=== PATIENT | male | born 1955 | race Caucasian/White ===

== ENCOUNTER 2019-01-05 14:27 | Observation (INO) ==
[2019-01-05 17:34] LABS: Basophils # 0.1 10*3/uL (0.0-0.2); Basophils % 0.4 % (0.0-0.8); Eosinophils # 0.5 10*3/uL (0.0-0.87); Eosinophils % 3.5 % (0.00-10.9); Hematocrit 42.5 VOL% (42.0-52.0); Hemoglobin 13.3 GM/DL (14.0-18.0); Immature Granulocytes % 0.7 %; Lymphocytes # 3.2 10*3/uL (1.4-4.0); Lymphocytes % 22.6 % (21.2-54.2); Mean Corpuscular HGB Conc 31.3 GM/DL (32-36); Mean Platelet Volume 9.7 FL (9.6-12.0); Monocytes % 7.3 % (1.7-12.7); Neutrophils % 65.5 % (38.7-73.9); Platelet Count 347 T/CUMM (130-400); Red Blood Count 4.83 MC/CUMM (3.8-5.5); Red Cell Distribution Width 15.7 % (9.3-17.3); White Blood Count 14.1 T/CUMM (4-12)
[2019-01-05] MEDS ORDERED: GLUCAGON 1 MG VIAL IM PRN (17:37)
[2019-01-05] MEDS ORDERED: DEXTROSE 10% 250 ML BAG IV PRN (17:37)
[2019-01-05] MEDS ORDERED: LACTULOSE 20 GM/30 ML UDCUP PO PRN (17:38)
[2019-01-05] MEDS ORDERED: DOCUSATE SODIUM 100 MG CAPSULE PO PRN (17:38)
[2019-01-05] MEDS ORDERED: ACETAMINOPHEN 325 MG TABLET PO PRN (17:38)
[2019-01-05] MEDS ORDERED: ZALEPLON 5 MG CAPSULE PO PRN (17:38)
[2019-01-05] MEDS ORDERED: ONDANSETRON 4 MG/2 ML VIAL IV PRN (17:38)
[2019-01-05] MEDS ORDERED: MORPHINE 4 MG/1 ML VIAL IV PRN (17:38)
[2019-01-05] MEDS ORDERED: NITROGLYCERIN SL 0.4 MG TABLET SL PRN (17:40)
[2019-01-05] MEDS ORDERED: hydrALAZINE 20 MG/1 ML VIAL IV PRN (17:54)
[2019-01-05 18:00] LABS: Albumin 4.4 G/DL (3.4-5.0); Bilirubin,Total 0.7 MG/DL (0.2-1.0); Osmolality,Calculated 284.7 MOS/KG (273-304); Total Protein 8.4 G/DL (6.4-8.3)
[2019-01-05 18:15] LABS: Troponin I 0.401 NG/ML (0.00-0.045)
[2019-01-05] MEDS: CARVEDILOL 25 MG TABLET PO SCH (21:04)
[2019-01-05] MEDS: ENOXAPARIN 40 MG/0.4 ML SYRINGE SUBCUT SCH (21:04)
[2019-01-05] MEDS: TICAGRELOR 90 MG TABLET PO SCH (21:04)
[2019-01-05] MEDS: RANOLAZINE 500 MG TABLET PO SCH (21:04)
[2019-01-05] MEDS: INSULIN REGULAR 100 UNIT/ML SUBCUT SCH (21:41)
[2019-01-05 23:48] LABS: Troponin I 0.412 NG/ML (0.00-0.045)
[2019-01-06 04:47] LABS: Basophils # 0.1 10*3/uL (0.0-0.2); Basophils % 0.5 % (0.0-0.8); Eosinophils # 0.5 10*3/uL (0.0-0.87); Eosinophils % 5.7 % (0.00-10.9); Hematocrit 39.3 VOL% (42.0-52.0); Hemoglobin 12.3 GM/DL (14.0-18.0); Immature Granulocytes % 0.7 %; Immature Granulocytes Absolute 0.06 #; Lymphocytes # 2.8 10*3/uL (1.4-4.0); Lymphocytes % 30.2 % (21.2-54.2); Mean Corpuscular HGB Conc 31.3 GM/DL (32-36); Mean Corpuscular Volume 87.5 FL (87-102); Mean Platelet Volume 10.2 FL (9.6-12.0); Monocytes % 8.5 % (1.7-12.7); Neutrophils % 54.4 % (38.7-73.9); Platelet Count 282 T/CUMM (130-400); Red Blood Count 4.49 MC/CUMM (3.8-5.5); Red Cell Distribution Width 15.7 % (9.3-17.3); White Blood Count 9.1 T/CUMM (4-12)
[2019-01-06 05:25] LABS: Risk Ratio 3.42; VLDL CHOLESTEROL 69.2 MG/DL
[2019-01-06 05:30] LABS: Calcium 9.5 MG/DL (8.5-10.1); Osmolality,Calculated 289.3 MOS/KG (273-304); Thyroid Stimulating Hormone 2.3 uIU/ml (0.358-3.74)
[2019-01-06 05:32] LABS: Troponin I 0.294 NG/ML (0.00-0.045)
[2019-01-06] MEDS: ASPIRIN CHEW 81 MG TABLET PO SCH (10:16)
[2019-01-06] MEDS: ROSUVASTATIN 20 MG TABLET PO SCH (10:16)
[2019-01-06] MEDS: RANOLAZINE 500 MG TABLET PO SCH ×2 (10:16→20:42)
[2019-01-06] MEDS: CARVEDILOL 25 MG TABLET PO SCH ×2 (10:16→18:24)
[2019-01-06] MEDS: PIOGLITAZONE 15 MG TABLET PO SCH (10:16)
[2019-01-06] MEDS: TICAGRELOR 90 MG TABLET PO SCH (10:16)
[2019-01-06] MEDS: INSULIN REGULAR 100 UNIT/ML SUBCUT SCH ×4 (11:29→21:24)
[2019-01-06] MEDS ORDERED: PRASUGREL 10 MG TABLET PO ONE (13:08)
[2019-01-06] MEDS: OMEGA 3 ACID ETHYL ESTERS 1 GM CAPSULE PO SCH (20:42)
[2019-01-06] MEDS: EZETIMIBE 10 MG TABLET PO SCH (20:42)
[2019-01-06] MEDS: ENOXAPARIN 40 MG/0.4 ML SYRINGE SUBCUT SCH (20:43)
[2019-01-07] MEDS ORDERED: PRASUGREL 10 MG TABLET PO SCH (09:00)
[2019-01-07] MEDS ORDERED: amLODIPine 2.5 MG TABLET PO PRN (09:28)
[2019-01-07] MEDS: PIOGLITAZONE 15 MG TABLET PO SCH (10:01)
[2019-01-07] MEDS: OMEGA 3 ACID ETHYL ESTERS 1 GM CAPSULE PO SCH ×2 (10:07→21:29)
[2019-01-07] MEDS: SERTRALINE 25 MG TABLET PO SCH (10:08)
[2019-01-07] MEDS: ROSUVASTATIN 20 MG TABLET PO SCH (10:08)
[2019-01-07] MEDS: ASPIRIN CHEW 81 MG TABLET PO SCH (10:08)
[2019-01-07] MEDS: CARVEDILOL 12.5 MG TABLET PO SCH ×3 (10:08→19:32)
[2019-01-07] MEDS: CLOPIDOGREL 75 MG TABLET PO SCH (10:08)
[2019-01-07] MEDS: INSULIN REGULAR 100 UNIT/ML SUBCUT SCH ×4 (10:22→21:30)
[2019-01-07] MEDS: CARVEDILOL 25 MG TABLET PO SCH (19:32)
[2019-01-07] MEDS: RANOLAZINE 500 MG TABLET PO SCH (19:33)
[2019-01-07] MEDS ORDERED: SERTRALINE 25 MG TABLET PO SCH (21:00)
[2019-01-07] MEDS ORDERED: traZODone 50 MG TABLET PO SCH (21:00)
[2019-01-07] MEDS: EZETIMIBE 10 MG TABLET PO SCH (21:29)
[2019-01-07] MEDS: ENOXAPARIN 40 MG/0.4 ML SYRINGE SUBCUT SCH (21:29)
[2019-01-08 04:24] LABS: Basophils # 0.1 10*3/uL (0.0-0.2); Basophils % 0.7 % (0.0-0.8); Eosinophils # 0.6 10*3/uL (0.0-0.87); Eosinophils % 6.9 % (0.00-10.9); Hematocrit 37.2 VOL% (42.0-52.0); Hemoglobin 11.5 GM/DL (14.0-18.0); Immature Granulocytes % 0.4 %; Immature Granulocytes Absolute 0.04 #; Lymphocytes # 2.2 10*3/uL (1.4-4.0); Lymphocytes % 25.2 % (21.2-54.2); Mean Corpuscular HGB Conc 30.9 GM/DL (32-36); Mean Corpuscular Volume 88.6 FL (87-102); Monocytes % 9.6 % (1.7-12.7); Neutrophils % 57.2 % (38.7-73.9); Platelet Count 253 T/CUMM (130-400); Red Cell Distribution Width 15.5 % (9.3-17.3); White Blood Count 8.9 T/CUMM (4-12)
[2019-01-08 04:41] LABS: Calcium 8.9 MG/DL (8.5-10.1); Osmolality,Calculated 291.4 MOS/KG (273-304)
[2019-01-08 08:06] VITALS: BP 147/77
[2019-01-08] MEDS: CARVEDILOL 12.5 MG TABLET PO SCH (08:47)
[2019-01-08] MEDS: CLOPIDOGREL 75 MG TABLET PO SCH (08:48)
[2019-01-08] MEDS: SERTRALINE 25 MG TABLET PO SCH (08:48)
[2019-01-08] MEDS: OMEGA 3 ACID ETHYL ESTERS 1 GM CAPSULE PO SCH (08:48)
[2019-01-08] MEDS: ROSUVASTATIN 20 MG TABLET PO SCH (08:48)
[2019-01-08] MEDS: ASPIRIN CHEW 81 MG TABLET PO SCH (08:53)
[2019-01-08] MEDS: INSULIN REGULAR 100 UNIT/ML SUBCUT SCH ×2 (08:53→15:08)
[2019-01-09 10:54] LABS: Metanephrine, Free 0.36 nmol/L (<0.50); Normetanephrine, Free 0.91 nmol/L (<0.90)
== END 2019-01-08 16:00 | disposition home or self-care (01) ==
LOC: N.TELES → SUATTDRO 16:05
PROVIDERS: ADMIT Internal Medicine; ATTEND Internal Medicine